=== PATIENT | female | born 1950 | race Caucasian/White ===

== ENCOUNTER 2018-02-28 21:42 | Emergency (ER) | payer OTHER ==
[2018-02-28] MEDS: STERILE WATER 1L IRRIG BTL IRR (23:43)
[2018-02-28] MEDS: LIDOCAINE 4% CR TOP (23:43)
[2018-02-28] MEDS: LIDOCAINE 1% (MDV) 10 ML INJ INJ (23:43)
[2018-02-28] MEDS: ACETAMINOPHEN 650MG/20.3ML CUP PO (23:43)
[2018-03-01] MEDS ORDERED: LIDOCAINE 1% (MPF) 5 ML VIAL INJ (01:08)
== END 2018-03-01 00:58 | disposition home or self-care (01) ==
LOC: FTE 21:42
DX: S61.212A Laceration without foreign body of right middle finger without damage to nail, initial encounter (principal); I10 Essential (primary) hypertension; E11.9 Type 2 diabetes mellitus without complications; W26.0XXA Contact with knife, initial encounter; Y92.9 Unspecified place or not applicable; Z79.84 Long term (current) use of oral hypoglycemic drugs; Z87.891 Personal history of nicotine dependence
CPT/HCPCS: 12001; 99283-25